=== PATIENT | male | born 1985 | race Two or more races ===

== ENCOUNTER 2022-07-02 10:06 | Emergency (ER) | payer OTHER ==
[~2022-07-02] VITALS: Ht 177.8 cm; Wt 55.3 kg
[~2022-07-02 10:06] MED LIST: NEXIUM40 M1 PO; PEPCID AC20 MG PO
[2022-07-02] MEDS ORDERED: ONDANSETRON ODT4 MG PO (10:14)
[2022-07-02] MEDS ORDERED: CHLORDIAZEPOXID10 MG PO (10:15)
== END 2022-07-02 15:16 | disposition home or self-care (01) ==
LOC: ER 10:06
DX: K58.8 Other irritable bowel syndrome (principal); Z91.011 Allergy to milk products; Z91.013 Allergy to seafood